=== PATIENT | female | born 1980 | race Caucasian/White ===

== ENCOUNTER → 2018-03-10 | Outpatient (CLI) | payer BC ==
[~2018-03-10] MED LIST: ACYC200C PO; ALPR-557 PO; SERT50TA9 PO
--- NOTE | 2018-03-10 13:14 | Diagnostic Imaging Report ---
INDICATION: anatomy survey. TECHNIQUE: Multiple real-time grayscale images were obtained over the gravid uterus. COMPARISON: None FINDINGS: There is a single live intrauterine in cephalic presentation. The placenta is posterior and fundal in location and is without previa. The amniotic fluid appears visually appropriate. Due to advanced gestational age, maternal adnexa are not well seen. survey was performed and the following structures are visualized and normal: Cerebral ventricles, cerebellum, cisterna magna, four-chamber heart, stomach, kidneys, umbilical cord insertion, three-vessel cord, spine and all four extremities. Biometrical measurements are as follows: Biparietal 4.8 cm, age 20 weeks 4 days. Head circumference 17.7 cm, age 20 weeks 2 days. Abdominal circumference 14.9 cm, age 20 weeks 2 days. Femur length 3.4 cm, age 20 weeks 4 days. Sonographic estimate age: 20 weeks 3 days. Sonographic estimated date of delivery: 07/25/18. Estimated Weight: 346 gm (+/- 51 gm). LMP percentile: 64%. heart rate: 150 beats per minute. number: 1 of 1. IMPRESSION: 1. Single live intrauterine with normal anatomy survey. Dictated by: Dictated on workstation # [id number]
== END ==
LOC: RAD 10:04
PROVIDERS: ATTEND Obstetrics & Gynecology
DX: Z36.89 Encounter for other specified antenatal screening (principal); Z3A.20 20 weeks gestation of pregnancy
CPT/HCPCS: 76805

== ENCOUNTER 2018-04-03 11:05 | Outpatient (CLI) | payer BC ==
[2018-04-03 11:55] VITALS: BP 122/76
--- NOTE | 2018-04-03 12:08 | Physician Query-Final Dx ---
Clinic Account Progress/Dx Physician Query: Date of Service Apr 03, 2018 at 11:05 DIAGNOSIS: Diagnosis decreased movement 24 weeks SANJUANA THOMAS DO Apr 03, 2018 12:08
== END 2018-04-03 12:00 | disposition home or self-care (01) ==
LOC: WSo 11:05 → LDRP 11:05 → WSo 12:00
PROVIDERS: ATTEND Obstetrics & Gynecology
DX: O36.8120 Decreased fetal movements, second trimester, not applicable or unspecified (principal); Z3A.24 24 weeks gestation of pregnancy
CPT/HCPCS: 99212

== ENCOUNTER 2018-07-09 13:45 | Inpatient (IN) | payer BC ==
[~2018-07-09] VITALS: Ht 147.3 cm; Wt 67.1 kg
[2018-07-09] VITALS (21 sets, daily range): BP systolic 135–191; BP diastolic 73–114
--- OUTSIDE RECORDS SUMMARY | 2018-07-09 14:13 | XMS REPORT ---
Author Author AMANDA BROWN Organization [facility] Address [address] [place] [address] Care Team Providers Care Freight Brakeman Name Role Phone AMANDA BROWN Unavailable PROBLEMS Unknown Problems ALLERGIES No Information ENCOUNTERS Encounter Location Date Diagnosis [facility] [address] [address] 15 Mar, 2018 Dental examination Z01.20 [facility] [address] [address] 14 Mar, 2018 Pain, dental K08.89 [facility] [address] [place], [place] [address] [address] Oct, Encounter for test, result unknown Z32.00 IMMUNIZATIONS No Known Immunizations SOCIAL HISTORY Never Assessed REASON FOR VISIT Lab (walk-in)- urine test PLAN OF CARE VITAL SIGNS MEDICATIONS No Known Medications RESULTS Name Result Date Reference Range TEST, URINE (IN HOUSE) 2017-11-25 RESULTS Positive Lot # [id number] Control + Exp date 02/2019 PROCEDURES Procedure Date Ordered Result Body Site URINE TEST Nov 25, 2017 INSTRUCTIONS MEDICATIONS ADMINISTERED No Known Medications MEDICAL (GENERAL) HISTORY Type Description Date Medical History Panic attacks Medical History - 2017 Surgical History steel rods and 10 fuzed vertebra
--- OUTSIDE RECORDS SUMMARY | 2018-07-09 14:13 | XMS REPORT | Continuity of Care Document ---
Author Author [facility] Organization [facility] Address Unknown Phone Unavailable Allergies Active Description Code Type Severity Reaction Onset Reported/Identified Relationship to Patient Clinical Status Yes NKANo Known Allergies NKA Miscellaneous Allergy Unknown N/A 04/02/2007 Medications There is no data. 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 07/20/2014 MARLA HAN APRN Ot 528.9 ORAL SOFT TISSUE DIS NEC 2018 OLGA BRAVO DO Ot 724.1 PAIN IN THORACIC SPINE 2018 OLGA BRAVO DO Ot 737.30 IDIOPATHIC SCOLIOSIS 03/07/2018 OLGA BRAVO DO Ot 724.1 PAIN IN THORACIC SPINE 03/07/2018 OLGA BRAVO DO Ot 737.30 IDIOPATHIC SCOLIOSIS 03/11/2018 REBECAECH DOTOMASZ S Ot Z36.89 ENCOUNTER FOR OTHER SPECIFIED 03/11/2018 REBECAECH DOTOMASZ S Ot Z3A.20 20 WEEKS GESTATION OF 03/26/2018 REBECAECH DOTOMASZ Ot Z36.89 ENCOUNTER FOR OTHER SPECIFIED 03/26/2018 FENECH DOTOMASZ Ot Z3A.20 20 WEEKS GESTATION OF 04/03/2018 SANJUANA THOMAS DO Ot O36.8120 DECREASED MOVEMENTS, SECOND TRIMES 04/03/2018 SANJUANA THOMAS DO Ot Z3A.24 24 WEEKS GESTATION OF Procedures There is no data. Results There is no data. Encounters ACCT No. Visit Date/Time Discharge Status Pt. Type Provider Facility Loc./Unit Complaint [id number] 04/03/2018 11:05:00 04/03/2018 12:00:00 DIS Outpatient SANJUANA THOMAS DO [facility] [id number] 03/10/2018 10:04:00 03/10/2018 23:59:59 CLS Outpatient TOMASZ BOYLE DO [facility] RAD [id number] 07/20/2014 19:01:00 07/20/2014 20:38:00 DIS Emergency MARLA HAN APRN [facility] ER DENTAL PAIN [id number] 02/01/2014 11:27:00 02/01/2014 23:59:59 CLS Outpatient OLGA BRAVO DO [facility] RAD PAIN IN BACK L THORACIC REG [id number] 07/09/2018 13:45:00 ACT Inpatient TOMASZ BOYLE DO [facility] LDRP PRECLAMPSIA [id number] 04/11/2018 08:30:00 04/11/2018 23:59:59 CLS Outpatient JOSEPH QUARLES L[facility]
--- OUTSIDE RECORDS SUMMARY | 2018-07-09 14:13 | XMS REPORT ---
Author Author MARY MATHEWS Organization [facility] Address [address] [place] [address] Care Team Providers Care Loin Puller Name Role Phone MARY MATHEWS Unavailable PROBLEMS Unknown Problems ALLERGIES No Known Allergies ENCOUNTERS Encounter Location Date Diagnosis [facility] [address] [address] 15 Mar, 2018 Dental examination Z01.[address] [facility] [address] [address] 14 Mar, 2018 Pain, dental K08.89 [facility] [address] [address] Oct, Encounter for test, result unknown Z32.00 IMMUNIZATIONS No Known Immunizations SOCIAL HISTORY Never Assessed REASON FOR VISIT tooth pain PLAN OF CARE VITAL SIGNS Blood pressure systolic 140 mmHg 2018-04-11 Blood pressure diastolic 90 mmHg 2018-04-11 MEDICATIONS Medication Instructions Dosage Frequency Start Date End Date Duration Status Alprazolam 0.5 MG Orally Twice a day 1 tablet 12h Active Zoloft 100 MG Orally Once a day 1 tablet 24h Active Amoxicillin 500 MG Orally every 8 hrs 1 capsule 8h Active RESULTS No Results PROCEDURES Procedure Date Ordered Result Body Site INTRAORL-PERIAPICAL 1 FILM [id number] April 11, 2018 BITEWING - SINGLE FILM April 11, 2018 INSTRUCTIONS MEDICATIONS ADMINISTERED No Known Medications MEDICAL (GENERAL) HISTORY Type Description Date Medical History Panic attacks Medical History - 2017 Surgical History steel rods and 10 fuzed vertebra
--- OUTSIDE RECORDS SUMMARY | 2018-07-09 14:13 | XMS REPORT ---
Author Author TEHRESA MARQUES Organization [facility] Address [address] [place] [address] Care Team Providers Care Window Draper Name Role Phone THERESA MARQUES Unavailable PROBLEMS Unknown Problems ALLERGIES No Known Allergies ENCOUNTERS Encounter Location Date Diagnosis [facility] [address], [place] [address] 15 Mar, 2018 Dental examination Z01.20 [facility] [address], [place] [address] 14 Mar, 2018 Pain, dental K08.89 [facility] [address], [place] [address] Oct, Encounter for test, result unknown Z32.00 IMMUNIZATIONS No Known Immunizations SOCIAL HISTORY Never Assessed REASON FOR VISIT Abscess tooth Pt has an abscess tooth and can't eat or sleep, she is 6 months , is currently on antibitiotics since Saturday which have not helped the swelling OZZIE Cabrera PLAN OF CARE Activity Details Follow Up tomorrow, April 11 Reason:dental pain VITAL SIGNS Weight 141.6 lbs 2018-04-10 Temperature 97.5 degrees Fahrenheit 2018-04-10 Heart Rate 88 bpm 2018-04-10 Respiratory Rate 20 2018-04-10 Blood pressure systolic 146 mmHg 2018-04-10 Blood pressure diastolic 88 mmHg 2018-04-10 MEDICATIONS Medication Instructions Dosage Frequency Start Date End Date Duration Status Amoxicillin 500 MG Orally every 8 hrs 1 capsule 8h Active Alprazolam 0.5 MG Orally Twice a day 1 tablet 12h Active Zoloft 100 MG Orally Once a day 1 tablet 24h Active RESULTS No Results PROCEDURES No Known procedures INSTRUCTIONS MEDICATIONS ADMINISTERED No Known Medications MEDICAL (GENERAL) HISTORY Type Description Date Medical History Panic attacks Medical History - 2017 Surgical History steel rods and 10 fuzed vertebra
[2018-07-09] MEDS ORDERED: D5 LR IV SOLUTION 1,000 ML IV ONE ×2 (15:00→23:30)
[2018-07-09] MEDS ORDERED: MISOPROSTOL 100 MCG (CYTOTEC) TAB PO NR (15:00)
[2018-07-09 15:46] LABS: BASOPHILS % (AUTO) 0 % (0-10); EOSINOPHILS # (AUTO) 0.1 10^3/uL (0.0-0.3); EOSINOPHILS % (AUTO) 1 % (0-10); HEMATOCRIT 32 % (35-52); HEMOGLOBIN 10.6 G/DL (11.5-16.0); LYMPHOCYTES # (AUTO) 2.1 X 10^3 (1.0-4.0); LYMPHOCYTES % (AUTO) 19 % (12-44); MEAN CORPUSCULAR HEMOGLOBIN 31 PG (25-34); MEAN CORPUSCULAR HGB CONC 33 G/DL (32-36); MEAN CORPUSCULAR VOLUME 92 FL (80-99); MEAN PLATELET VOLUME 10.9 FL (7.4-10.4); MONOCYTES # (AUTO) 0.7 X 10^3 (0.0-1.0); MONOCYTES % (AUTO) 6 % (0-12); NEUTROPHILS # (AUTO) 8.4 X 10^3 (1.8-7.8); NEUTROPHILS % (AUTO) 75 % (42-75); PLATELET COUNT 293 10^3/uL (130-400); RED BLOOD COUNT 3.47 10^6/uL (4.35-5.85); RED CELL DISTRIBUTION WIDTH 12.9 % (10.0-14.5); WHITE BLOOD COUNT 11.3 10^3/uL (4.3-11.0)
[2018-07-09 16:03] LABS: ALANINE AMINOTRANSFERASE 11 U/L (0-55); ALBUMIN 3.3 GM/DL (3.2-4.5); ALKALINE PHOSPHATASE 243 U/L (40-136); BILIRUBIN,TOTAL 0.4 MG/DL (0.1-1.0); BUN/CREATININE RATIO 13; CARBON DIOXIDE 19 MMOL/L (21-32); CHLORIDE 105 MMOL/L (98-107); GFR ESTIMATED > 60; GLUCOSE 77 MG/DL (70-105); POTASSIUM 3.9 MMOL/L (3.6-5.0); SODIUM 133 MMOL/L (135-145); TOTAL PROTEIN 6.8 GM/DL (6.4-8.2)
--- NOTE | 2018-07-09 16:48 | History & Physical-OB ---
OB - Chief Complaint & HPI Date/Time Date of Admission: Date of Admission: Jul 09, 2018 at 1:45 pm Time Seen by Provider: 14:00 Chief Complaint/History OB-Reason for Admission/Chief: Obstetrical Complication (Preeclampsia) Hx : 1 Hx Para: 0 Expected Date of Delivery: Jul 22, 2018 Gestational Age in Weeks: 38 Gestational Age in Days: 1 Indication for induction: other (PreE) Other reason for admission: Patient sent up from office with BP of 140s /100s with +3 proteinuria and 0.4 protien/creatine ratio. Admission Nurse Assessment Rev: Yes History of Labs A pos Antibody neg RI RPR NR HBsAg NR HIV NR GC neg GBS neg Laboratory Tests Test 07/09/18 15:30 Range/Units White Blood Count 11.3 H 4.3-11.0 10^3/uL Red Blood Count 3.47 L 4.35-5.85 10^6/uL Hemoglobin 10.6 L 11.5-16.0 G/DL Hematocrit 32 L 35-52 % Mean Corpuscular Volume 92 80-99 FL Mean Corpuscular Hemoglobin 31 25-34 PG Mean Corpuscular Hemoglobin Concent 33 32-36 G/DL Red Cell Distribution Width 12.9 10.0-14.5 % Platelet Count 293 130-400 10^3/uL Mean Platelet Volume 10.9 H 7.4-10.4 FL Neutrophils (%) (Auto) 75 42-75 % Lymphocytes (%) (Auto) 19 12-44 % Monocytes (%) (Auto) 6 0-12 % Eosinophils (%) (Auto) 1 0-10 % Basophils (%) (Auto) 0 0-10 % Neutrophils # (Auto) 8.4 H 1.8-7.8 X 10^3 Lymphocytes # (Auto) 2.1 1.0-4.0 X 10^3 Monocytes # (Auto) 0.7 0.0-1.0 X 10^3 Eosinophils # (Auto) 0.1 0.0-0.3 10^3/uL Basophils # (Auto) 0.0 0.0-0.1 10^3/uL Sodium Level 133 L 135-145 MMOL/L Potassium Level 3.9 3.6-5.0 MMOL/L Chloride Level 105 98-107 MMOL/L Carbon Dioxide Level 19 L 21-32 MMOL/L Anion Gap 9 5-14 MMOL/L Blood Urea Nitrogen 9 7-18 MG/DL Creatinine 0.70 0.60-1.30 MG/DL Estimat Glomerular Filtration Rate > 60 BUN/Creatinine Ratio 13 Glucose Level 77 70-105 MG/DL Uric Acid 7.0 2.6-7.2 MG/DL Calcium Level 9.0 8.5-10.1 MG/DL Corrected Calcium 9.6 8.5-10.1 MG/DL Total Bilirubin 0.4 0.1-1.0 MG/DL Aspartate Amino Transf (AST/SGOT) 21 5-34 U/L Alanine Aminotransferase (ALT/SGPT) 11 0-55 U/L Alkaline Phosphatase 243 H 40-136 U/L Total Protein 6.8 6.4-8.2 GM/DL Albumin 3.3 3.2-4.5 GM/DL Allergies and Home Medications Allergies Coded Allergies: NKANo Known Allergies (Verified Allergy, Unknown, 04/02/07) Home Medications Acyclovir 200 Mg Capsule, 400 MG PO UD 5 times daily Prescribed by: MARLA HAN on 07/20/141954 Alprazolam 0.5 Mg Tab, 0.5 MG PO DAILY, (Reported) 1 TABLET IN THE MORNING AND ONE HALF TABLET IN THE EVENING. Sertraline Hcl 50 Mg Tablet, 50 MG PO DAILY, (Reported) Patient Home Medication List Home Medication List Reviewed: Yes OB - History Hx of Present Care: Yes Ultrasounds: Normal mid trimester US Obstetrical Complications: Pre-eclampsia Medical Complications: Other (Severe anxiety on Xanax) Delivery History Hx Blood Disorders: No Adverse Rxn to Tranfusion: No Patient Past Medical History severe anxiety, and hx of severe scoliosis requiring surgery OB - Admission Exam Physical Exam HEENT: NCAT Heart: Rhythm Normal Lungs: Clear Abdomen: Gravid Extremities: Normal Reflexes: Normal Cervical Dilatation: None Effacement: 50% Station: -2 Membranes: Intact Heart Rate: 130's Accelerations: Accelerations Present Decelerations: No Decelerations Short Term Variability: Present Data Collector Variability: Average (6-25) Contractions on Admission: >10 Minutes Apart Labs Laboratory Tests Test 07/09/18 15:30 Range/Units White Blood Count 11.3 H 4.3-11.0 10^3/uL Red Blood Count 3.47 L 4.35-5.85 10^6/uL Hemoglobin 10.6 L 11.5-16.0 G/DL Hematocrit 32 L 35-52 % Mean Corpuscular Volume 92 80-99 FL Mean Corpuscular Hemoglobin 31 25-34 PG Mean Corpuscular Hemoglobin Concent 33 32-36 G/DL Red Cell Distribution Width 12.9 10.0-14.5 % Platelet Count 293 130-400 10^3/uL Mean Platelet Volume 10.9 H 7.4-10.4 FL Neutrophils (%) (Auto) 75 42-75 % Lymphocytes (%) (Auto) 19 12-44 % Monocytes (%) (Auto) 6 0-12 % Eosinophils (%) (Auto) 1 0-10 % Basophils (%) (Auto) 0 0-10 % Neutrophils # (Auto) 8.4 H 1.8-7.8 X 10^3 Lymphocytes # (Auto) 2.1 1.0-4.0 X 10^3 Monocytes # (Auto) 0.7 0.0-1.0 X 10^3 Eosinophils # (Auto) 0.1 0.0-0.3 10^3/uL Basophils # (Auto) 0.0 0.0-0.1 10^3/uL Sodium Level 133 L 135-145 MMOL/L Potassium Level 3.9 3.6-5.0 MMOL/L Chloride Level 105 98-107 MMOL/L Carbon Dioxide Level 19 L 21-32 MMOL/L Anion Gap 9 5-14 MMOL/L Blood Urea Nitrogen 9 7-18 MG/DL Creatinine 0.70 0.60-1.30 MG/DL Estimat Glomerular Filtration Rate > 60 BUN/Creatinine Ratio 13 Glucose Level 77 70-105 MG/DL Uric Acid 7.0 2.6-7.2 MG/DL Calcium Level 9.0 8.5-10.1 MG/DL Corrected Calcium 9.6 8.5-10.1 MG/DL Total Bilirubin 0.4 0.1-1.0 MG/DL Aspartate Amino Transf (AST/SGOT) 21 5-34 U/L Alanine Aminotransferase (ALT/SGPT) 11 0-55 U/L Alkaline Phosphatase 243 H 40-136 U/L Total Protein 6.8 6.4-8.2 GM/DL Albumin 3.3 3.2-4.5 GM/DL OB - Assessment/Plan/Diagnosis Assessment Assessment: induction of labor Admission Dx 38 yo @ 38.1 weeks Preeclampsia GBS neg Hx of anxiety on xanax Hx of back surgeries for scoliosis Admission Status: Inpatient Order (span 2 midnights) Reason for Inpatient Admission: 38 yo @ 38.1 weeks Preeclampsia GBS neg Hx of anxiety on xanax Hx of back surgeries for scoliosis Plan Plan: Induction Induction Method: per Misoprostol Protocol TOMASZ BOYLE DO Jul 09, 2018 4:48 pm
[2018-07-09 16:57] LABS: BILIRUBIN,URINE NEGATIVE (NEGATIVE); CLARITY,URINE CLEAR; COLOR,URINE YELLOW; GLUCOSE, URINE (UA) NEGATIVE (NEGATIVE); KETONES,URINE NEGATIVE (NEGATIVE); LEUKOCYTE ESTERASE ,URINE 1+ (NEGATIVE); NITRITE,URINE NEGATIVE (NEGATIVE); PH,URINE 6 (5-9); PROTEIN,URINE 2+ (NEGATIVE); UROBILINOGEN,URINE NORMAL (NORMAL)
[2018-07-09 17:09] LABS: BACTERIA,URINE FEW /HPF
[2018-07-09] MEDS ORDERED: ACETAMINOPHEN 500 MG TAB (TYLENOL) ONE (19:18)
[2018-07-09] MEDS: MISOPROSTOL 100 MCG (CYTOTEC) TAB PO SCH ×2 (19:22→23:34)
[2018-07-09] MEDS ORDERED: ACETAMINOPHEN 500 MG TAB (TYLENOL) PO PRN (19:30)
[2018-07-09] MEDS ORDERED: D5 LR IV SOLUTION 1,000 ML IV SCH (23:46)
[2018-07-10] VITALS (19 sets, daily range): BP systolic 121–185; BP diastolic 69–108
[2018-07-10] MEDS ORDERED: METOCLOPRAMIDE INJ 10 MG/2 ML (REGLAN) ONE (02:22)
[2018-07-10] MEDS ORDERED: raNItidine 50 MG/2 ML INJ (ZANTAC) ONE (02:22)
[2018-07-10] MEDS ORDERED: CITRIC ACID/SOB CIT (BICITRA) 30 ML UDC ONE (02:23)
[2018-07-10] MEDS ORDERED: NS (IVPB) 50 ML ONE ×2 (02:23→06:02)
[2018-07-10] MEDS ORDERED: ceFAZolin 1,000 MG/10 ML (ANCEF) VIAL ONE (02:23)
[2018-07-10] MEDS ORDERED: METOCLOPRAMIDE INJ 10 MG/2 ML (REGLAN) IV ONE ×2 (02:30→03:00)
[2018-07-10] MEDS ORDERED: LACTATED RINGERS 1,000 ML IV PRN (02:30)
[2018-07-10] MEDS ORDERED: raNItidine INJECTION 50 MG in NS (IVPB) 50 ML IV ONE (02:30)
[2018-07-10] MEDS ORDERED: CITRIC ACID/SOB CIT (BICITRA) 30 ML UDC PO ONE ×2 (02:30→03:00)
--- NOTE | 2018-07-10 02:32 | Progress Note-Standard ---
Standard Progress Note Progress Notes/Assess & Plan Date Seen by Provider: Jul 10, 2018 Time Seen by Provider: 02:00 Progress/Assessment & Plan I presented to the hospital this morning during the patient's cervical ripening using Cytotec due to being contacted by the nurse with blood pressures of 180s over 110s, as well as a continuing severe headache. Upon presenting to the labor unit the patient reports having some vision changes I discussed with her starting magnesium sulfate and proceeding with delivery however due to the length of delivery the patient being remote from delivery, as well as recent spontaneous rupture membranes I discussed the patient proceed with . The indication for this would be worsening severe preeclampsia, with remoteness from delivery. Risk of the procedure was discussed with the patient in detail including risk of bleeding, infection, damaging surrounding structures including but not limited to bowel, bladder, kidneys. We discussed postoperative expectations recovery timeframe, she understands this is not ideal but more for her safety as well as well-being with the risk of prolonged rupture membranes and an extended labor course with elevated blood pressures. We will proceed with primary section soon as or staff is available, if no improvement we'll blood pressure after neural-axial analgesia, will consider magnesium sulfate infusion. TOMASZ BOYLE DO Jul 10, 2018 2:32 am
[2018-07-10] MEDS ORDERED: OXYTOCIN/NORMAL SALINE 500 ML IV SCH (02:33)
[2018-07-10] MEDS ORDERED: D5 LR IV SOLUTION 1,000 ML IV SCH (02:35)
[2018-07-10] MEDS ORDERED: CALCIUM GLUC. 10% 4.65 MEQ/10 ML VIAL IV PRN (02:45)
[2018-07-10] MEDS ORDERED: HYDROmorphone 2 MG/ML VIAL (DILAUDID) IV PRN (02:45)
[2018-07-10] MEDS ORDERED: ONDANSETRON 4 MG/2 ML (SDV) Z0FRAN IVP PRN (02:45)
[2018-07-10] MEDS ORDERED: TETANUS,DIPTH,PERTUSS P/F (BOOSTRIX) 0.5 ML VIAL IM SCH (02:45)
[2018-07-10] MEDS ORDERED: MEASLES,MUMPS,RUBELLA 1 EA INJ SC SCH (02:45)
[2018-07-10] MEDS ORDERED: ceFAZolin INJECTION 1,000 MG in NS (IVPB) 50 ML IV ONE (02:45)
[2018-07-10] MEDS ORDERED: LACTATED RINGERS 1,000 ML IV SCH ×2 (02:51)
[2018-07-10] MEDS ORDERED: ONDANSETRON 4 MG/2 ML (SDV) Z0FRAN ONE (02:57)
[2018-07-10] MEDS ORDERED: fentaNYL INJECTION 100 MCG/2 ML AMP ONE (02:57)
[2018-07-10] MEDS ORDERED: OXYTOCIN/NORMAL SALINE 1,000 ML IV ONE (02:57)
[2018-07-10] MEDS ORDERED: DEXAMETHASONE 10 MG/ML (DECADRON) 1 ML VIAL ONE (02:57)
[2018-07-10] MEDS ORDERED: NALOXONE 0.4 MG/ML 1 ML (NARCAN) VIAL IV PRN ×2 (03:00)
[2018-07-10] MEDS ORDERED: FAMOTIDINE 20MG/2ML IV (PEPCID) IV ONE (03:00)
[2018-07-10] MEDS ORDERED: METOCLOPRAMIDE INJ 10 MG/2 ML (REGLAN) IV PRN (03:00)
[2018-07-10] MEDS ORDERED: diphenhydrAMINE 50 MG/ML INJ (BENADRYL) IV PRN (03:00)
[2018-07-10] MEDS ORDERED: ONDANSETRON 4 MG/2 ML (SDV) Z0FRAN IV PRN (03:00)
[2018-07-10] MEDS ORDERED: BUPIVACAINE SPINAL 0.75% (SENSORCAINE) 2 ML AMP ONE (03:02)
[2018-07-10] MEDS ORDERED: MAGNESIUM SULFATE DRIP 500 ML IV SCH (03:05)
[2018-07-10] MEDS ORDERED: KETAMINE HCL 100 MG/ML 5 ML VIAL ONE (03:26)
[2018-07-10] MEDS ORDERED: KETOROLAC 30 MG/ML VIAL ONE (03:49)
[2018-07-10] MEDS: KETOROLAC 30 MG/ML VIAL IVP SCH ×4 (04:00→22:39)
[2018-07-10] MEDS: MAGNESIUM 4 GM/100 ML IVPB 100 ML IV SCH ×2 (04:38→04:54)
--- NOTE | 2018-07-10 05:06 | OPERATIVE REPORT ---
DATE OF SERVICE: PREOPERATIVE DIAGNOSES: 1. A 38-year-old G1, P0 at 38 weeks and 2 days gestation. 2. Severe worsening preeclampsia. 3. Remote from delivery. 4. Advanced maternal age. 5. Severe anxiety with Xanax used during . POSTOPERATIVE DIAGNOSES: 1. A 38-year-old G1, P0 at 38 weeks and 2 days gestation. 2. Severe worsening preeclampsia. 3. Remote from delivery. 4. Advanced maternal age. 5. Severe anxiety with Xanax used during . PROCEDURE: Primary low transverse section. SURGEON: Cj Morgan DO ANESTHESIA: Spinal. ESTIMATED BLOOD LOSS: 300 mL. URINE OUTPUT: 35 mL clear at the end of the procedure. FLUIDS: 300 mL of lactated Ringer's solution. FINDINGS: A live female infant with weight and Apgars that are pending as well as respiratory depression according to synthetic gem press operator available. Grossly normal appearing uterus, bilateral fallopian tubes and ovaries. SPECIMEN SENT: Placenta. INDICATIONS FOR PROCEDURE: This 38-year-old female who was a patient seen in my office with a diagnosis of preeclampsia. Initially started with cervical ripening agents in order to start out for induction; however, her blood pressures began to shoot up higher, 180s over 110s. This may be slightly anxiety induced and pain induced but she was also reporting a severe significant headache that was new onset since the start of the induction. Due to this severe preeclampsia as well as the patient being remote from delivery and spontaneous rupture of membranes which had occurred, I discussed with the patient proceeding with for delivery and treatment of her hypertension. Risks of the procedure were discussed with the patient in detail including risk of bleeding, infection, damage to surrounding structures including but not limited to bowel, bladder, ureter, kidneys, preoperative expectations as well as postoperative recovery time period, hospital admission and expectations as well. After all the patient's questions were answered, consent was obtained in the preoperative area. The patient was taken to the operating room. OPERATIVE REPORT IN DETAIL: Once in the operating room, spinal analgesia was found to be adequate, she was placed in supine position with a leftward tilt, prepped and draped in normal sterile fashion. A timeout was performed. Anesthesia was tested. A Pfannenstiel skin incision was then made with a knife and carried down to the underlying fascia using Bovie cautery. Superior aspect of fascial incision was then grasped with Germain clamps, tented up and dissected off the underlying rectus muscles. The inferior aspect of the fascial incision was then grasped with Germain clamps, tented up and dissected off the underlying rectus muscles. The rectus muscle was then dissected down the midline using Metzenbaum scissors, which exposed the peritoneum, which was entered bluntly and extended using blunt traction. I then placed an Homar ring retractor in to the peritoneal incision, which offered excellent lateral sidewall retraction. I then identified the lower uterine segment, which was found to be thinned out. I made an incision through the vesicouterine peritoneum and bluntly dissected this off of the lower uterine segment, creating a bladder flap. I then proceeded with my myotomy until membranes were visualized, at which point I extended the uterine incision laterally and superiorly using bandage scissors, which also ruptures the membranes through my incision on the myotomy. The was found in the vertex presentation, occiput posterior. I elevated the 's head out of incision with gentle fundal pressure, the 's head was delivered through the incision. The nares and oropharynx were both bulb suctioned. Anterior and posterior shoulders were delivered. Infant was then brought to the operative field. The cord was doubly clamped and cut. The infant was handed off to Dr. Sanchez attending to delivery. Cord blood was collected. Three-vessel cord with intact placenta delivered spontaneously thereafter. IV Pitocin was initiated to facilitate uterine contraction. The fundus was controlled by manual massage. The uterus was then exteriorized and cleared of all endometrial clots and debris. I then proceeded with closing the uterine incision using 0 Vicryl suture in a running locked fashion. Second layer imbricating 0 Monocryl was placed. Excellent hemostasis was noted after doing so. I then placed the uterus back in the pelvis, copiously irrigating the pelvis using normal saline. Once again, there was no active bleeding noted from any of my dissection plane. I then placed Interceed antiadhesive over my low transverse incision. I proceed closing the peritoneum using 3-0 Vicryl suture in running fashion. The rectus muscle reapproximated using 3-0 Vicryl suture in interrupted fashion. The fascia was reapproximated using 0 Vicryl suture in running fashion. The subcutaneous tissue was reapproximated using 3-0 plain interrupted subcutaneous stitch and skin reapproximated using 4-0 Monocryl in running subcuticular. Dermabond was applied to the incision and sterile dressing with adhesive white tape. One gram of Ancef given preoperatively for infection prophylaxis. Magnesium sulfate infusion was started after delivery of the infant with a bolus of 4 grams. The patient was then taken to the recovery area in stable condition. Job ID: [id number] DocumentID: [id number] Dictated Date: 07/10/2018 04:14:15 Motor Patrol Operator Date: 07/10/2018 05:05:34 Dictated By: DO AMANDEEP MASON
[2018-07-10] MEDS: IBUPROFEN 600 MG (MOTRIN) TAB PO SCH (05:48)
[2018-07-10] MEDS ORDERED: CATHETER FLUSH 10 ML SYR IV SCH ×2 (06:00)
[2018-07-10] MEDS: HYDROcodone/APAP 5 MG/325 MG (LORTAB) TAB PO PRN ×4 (07:10→21:04)
[2018-07-10] MEDS ORDERED: raNItidine 50 MG/NS 50 ML IVPB IV NR ×2 (07:37)
[2018-07-10] MEDS ORDERED: LABETALOL 200 MG (NORMODYNE) TAB PO NR (10:15)
[2018-07-10] MEDS: DOCUSATE SODIUM 100 MG (COLACE) CAP PO SCH ×2 (10:36→20:33)
[2018-07-10] MEDS: LABETALOL 200 MG (NORMODYNE) TAB PO SCH (20:33)
[2018-07-10] MEDS ORDERED: LABETALOL 200 MG (NORMODYNE) TAB PO SCH (21:00)
[2018-07-11] VITALS: BP 132/86
[2018-07-11] MEDS: HYDROcodone/APAP 5 MG/325 MG (LORTAB) TAB PO PRN ×4 (00:59→13:45)
[2018-07-11 04:03] VITALS: BP 107/70
[2018-07-11] MEDS: IBUPROFEN 600 MG (MOTRIN) TAB PO SCH ×2 (05:38→11:25)
[2018-07-11 06:00] LABS: BASOPHILS % (AUTO) 0 % (0-10); EOSINOPHILS # (AUTO) 0.1 10^3/uL (0.0-0.3); EOSINOPHILS % (AUTO) 1 % (0-10); HEMATOCRIT 26 % (35-52); HEMOGLOBIN 8.6 G/DL (11.5-16.0); LYMPHOCYTES # (AUTO) 2.4 X 10^3 (1.0-4.0); LYMPHOCYTES % (AUTO) 19 % (12-44); MEAN CORPUSCULAR HEMOGLOBIN 31 PG (25-34); MEAN CORPUSCULAR HGB CONC 33 G/DL (32-36); MEAN CORPUSCULAR VOLUME 94 FL (80-99); MEAN PLATELET VOLUME 10.6 FL (7.4-10.4); MONOCYTES % (AUTO) 7 % (0-12); NEUTROPHILS # (AUTO) 9.3 X 10^3 (1.8-7.8); NEUTROPHILS % (AUTO) 73 % (42-75); PLATELET COUNT 169 10^3/uL (130-400); RED BLOOD COUNT 2.81 10^6/uL (4.35-5.85); RED CELL DISTRIBUTION WIDTH 13.1 % (10.0-14.5); WHITE BLOOD COUNT 12.8 10^3/uL (4.3-11.0)
--- NOTE | 2018-07-11 06:52 | Anesthesia-Regional Post-Op ---
Regional Patient Condition Mental Status: Alert, Oriented x3 Circulation: Same as Pre-Op Headache: Absent Sensation: Full Recovery Motor Block: Absent Post Op Complications Complications None Follow Up Care/Instructions Patient Instructions None needed. Anesthesia/Patient Condition Patient is doing well, no complaints, stable vital signs, no apparent adverse anesthesia problems. No complications reported per nursing. PRIYA LEMA CRNA Jul 11, 2018 06:52
[2018-07-11 08:00] VITALS: BP 143/92
[2018-07-11 12:42] LABS: BASOPHILS % (AUTO) 0 % (0-10); EOSINOPHILS # (AUTO) 0.1 10^3/uL (0.0-0.3); EOSINOPHILS % (AUTO) 1 % (0-10); HEMATOCRIT 26 % (35-52); HEMOGLOBIN 8.5 G/DL (11.5-16.0); LYMPHOCYTES # (AUTO) 2.2 X 10^3 (1.0-4.0); LYMPHOCYTES % (AUTO) 19 % (12-44); MEAN CORPUSCULAR HEMOGLOBIN 31 PG (25-34); MEAN CORPUSCULAR HGB CONC 33 G/DL (32-36); MEAN CORPUSCULAR VOLUME 94 FL (80-99); MEAN PLATELET VOLUME 10.3 FL (7.4-10.4); MONOCYTES # (AUTO) 0.7 X 10^3 (0.0-1.0); MONOCYTES % (AUTO) 7 % (0-12); NEUTROPHILS # (AUTO) 8.4 X 10^3 (1.8-7.8); NEUTROPHILS % (AUTO) 73 % (42-75); PLATELET COUNT 178 10^3/uL (130-400); RED BLOOD COUNT 2.75 10^6/uL (4.35-5.85); RED CELL DISTRIBUTION WIDTH 13.2 % (10.0-14.5); WHITE BLOOD COUNT 11.5 10^3/uL (4.3-11.0)
--- NOTE | 2018-07-11 13:01 | Physician Progress Note ---
Progress Note Assessment/Plan Date Seen by Provider: Jul 11, 2018 Time Seen by Provider: 11:15 Events since last exam Asked to see patient by Dr. Morgan who is temporarily unavailable. Had cs yesterday at 0330. Bandage was removed at 0600. RN noted blood "running down" onto floor but initially unsure if this was vaginal vs incision. However, since that time, RN has placed pad and now pressure dressing. Initial pad was immediately soaked with standing. Current dressing appears dry. However, Hgb had dropped from 10.6-8.6. she states that she has had some burning pain in the right lower quadrant near the incision. She states, however, that this has improved but is still present. On exam the incision is intact but there is some drainage from the center of the incision with palpation. however, this is minimal. It is suggestive of an incisional seroma, but there is no ecchymosis or bruising. RN states that the area above the center portion of the incision was firm but is now softer. In addition, the abdomen is soft and minimally tender. I suspect that she has had a seroma. However, I cannot assess acute bleeding. Vitals are stable. There is nothing to suggest a rectus hematoma or intraabdominal bleeding. Will continue pressure dressing and recheck hemoglobin. Not necessary to return to surgery at this time but will reevaluate at a later time. discussed via phone with Dr. Morgan. RN present for exam and discussion. Addendum 12:30 Hgb is 8.5 which is stable Assessment/Plan Incisional seroma Vitals Last set of Vitals Signs Vital Signs Date Time Temp Pulse Resp B/P (MAP) Pulse Ox O2 Delivery O2 Flow Rate FiO2 07/11/18 04:03 97.7 71 16 107/70 (82) 95 07/10/18 15:15 Room Air I&O I&O Intake and Output 07/11/18 00:00 Intake Total 550 ml Output Total 685 ml Balance -135 ml Intake Oral 500 ml IV Total 50 ml Output Urine Total 385 ml Estimated Blood Loss 300 ml Labs Laboratory Tests 07/11/18 05:35: White Blood Count 12.8H, Red Blood Count 2.81L, Hemoglobin 8.6L, Hematocrit 26L , Mean Corpuscular Volume 94, Mean Corpuscular Hemoglobin 31, Mean Corpuscular Hemoglobin Concent 33, Red Cell Distribution Width 13.1, Platelet Count 169, Mean Platelet Volume 10.6H, Neutrophils (%) (Auto) 73, Lymphocytes (%) (Auto) 19 , Monocytes (%) (Auto) 7, Eosinophils (%) (Auto) 1, Basophils (%) (Auto) 0, Neutrophils # (Auto) 9.3H, Lymphocytes # (Auto) 2.4, Monocytes # (Auto) 1.0, Eosinophils # (Auto) 0.1, Basophils # (Auto) 0.0 07/11/18 12:20: White Blood Count 11.5H, Red Blood Count 2.75L, Hemoglobin 8.5L, Hematocrit 26L , Mean Corpuscular Volume 94, Mean Corpuscular Hemoglobin 31, Mean Corpuscular Hemoglobin Concent 33, Red Cell Distribution Width 13.2, Platelet Count 178, Mean Platelet Volume 10.3, Neutrophils (%) (Auto) 73, Lymphocytes (%) (Auto) 19 , Monocytes (%) (Auto) 7, Eosinophils (%) (Auto) 1, Basophils (%) (Auto) 0, Neutrophils # (Auto) 8.4H, Lymphocytes # (Auto) 2.2, Monocytes # (Auto) 0.7, Eosinophils # (Auto) 0.1, Basophils # (Auto) 0.0 Clinical Quality Measures DVT/VTE Risk/Contraindication: Risk Factor Score Per Nursin RFS Level Per Nursing on Admit: 1=Low/No VTE PPX SANJUANA THOMAS DO Jul 11, 2018 13:01
--- NOTE | 2018-07-11 13:44 | Discharge Inst-Women's Service ---
Discharge Inst-Women's Serv Depart Medication/Instructions New, Converted or Re-Newed RX: RX on Chart Consults/Follow Up Additional Follow Up: Yes Orders/Referrals Dr. Morgan on Saturday for incision check and 6 weeks Activity Activity: Activity as Tolerated Driving Instructions: No Driving for 1 Week NO SMOKING: NO SMOKING Nothing Inside Vagina: No Douching, No [place], No Tampons Diet Discharge Diet: No Restrictions Symptoms to Report to : Swelling Increased, Bleeding Excessive, Eyesight Changes, Pain Increased, Fever Over 101 Degrees F, Pain/Pressure in Chest, Vaginal Bleeding Increase, Questions/Concerns, Dizziness/Fainting For Any Problems or Questions: Contact Your Physician Skin/Wound Care Infection Signs and Symptoms: Increased Redness, Foul Odor of Wound, Increased Drainage, Skin Itchy or Has a Rash, Increased Swelling, Temperature Above 101 F Operative Area Clean and Dry: Keep Incision Clean/Dry Stitches/Jonny/Dermabond: Dermabond, Care of Stitches Bathing Instructions: TOMASZ Duncan DO Jul 11, 2018 13:44
[2018-07-11] MEDS: LABETALOL 200 MG (NORMODYNE) TAB PO SCH (13:45)
[2018-07-11] MEDS: DOCUSATE SODIUM 100 MG (COLACE) CAP PO SCH (13:45)
[2018-07-11] MEDS ORDERED: LABE200T7 PO (13:46)
[2018-07-11] MEDS ORDERED: DOCU100C37 PO (13:46)
[2018-07-11] MEDS ORDERED: IBUP-844 PO (13:46)
[2018-07-11] MEDS ORDERED: ACHD5005 PO (13:46)
[2018-07-11 14:00] VITALS: BP 161/108
--- NOTE | 2018-07-11 14:57 | Postpartum Progress Note ---
Note Note Day # 1 Subjective: Patient is without complaints. Ambulating, voiding. Tolerating a regular diet without nausea or vomiting. Normal lochia. Pain is well controlled with oral pain medications. was transferred to [place] for respiratory distress but is doing well according to patient Objective: Vital Sign - Last 24 Hours 07/10/18 07/10/18 07/11/18 07/11/18 15:15 19:25 00:00 04:03 Temp 97.6 97.4 97.4 97.7 Pulse 88 91 93 71 Resp 18 18 18 16 B/P (MAP) 143/93 (110) 140/87 (104) 132/86 (101) 107/70 (82) Pulse Ox 98 97 97 95 O2 Delivery Room Air Intake and Output 07/10/18 07/10/18 07/11/18 15:00 23:00 07:00 Intake Total 500 ml 470 ml Output Total 100 ml 600 ml Balance -100 ml 500 ml -130 ml Physical Exam: General - Alert and oriented, no apparent distress Abdomen - Soft, appropriately tender to palpation, non-distended, fundus firm at umbilicus Extremities - no edema, negative Samantha's bilaterally Incision- c/d/i, had serous sanguenous drainage early, but with pressure and redressing that has stopped Assessment: POD 1 PLTCS PreE Incisional seroma Severe anxiety/anxiety disorder s/p MgSO4 x 12 hrs Plan: Routine care. Encourage breast feeding. Encourage ambulation. Ferrous sulfate supplementation. Continue labetalol 200 mg TID at home Plan for discharge today to be with at [place] Vitals - Labs Vital Signs - I&O Vital Signs Date Time Temp Pulse Resp B/P (MAP) Pulse Ox O2 Delivery O2 Flow Rate FiO2 07/11/18 04:03 97.7 71 16 107/70 (82) 95 07/11/18 00:00 97.4 93 18 132/86 (101) 97 07/10/18 19:25 97.4 91 18 140/87 (104) 97 07/10/18 15:15 97.6 88 18 143/93 (110) 98 Room Air I & O 07/11/18 07:00 Intake Total 970 ml Output Total 700 ml Balance 270 ml Labs Laboratory Tests 07/11/18 05:35: White Blood Count 12.8H, Red Blood Count 2.81L, Hemoglobin 8.6L, Hematocrit 26L , Mean Corpuscular Volume 94, Mean Corpuscular Hemoglobin 31, Mean Corpuscular Hemoglobin Concent 33, Red Cell Distribution Width 13.1, Platelet Count 169, Mean Platelet Volume 10.6H, Neutrophils (%) (Auto) 73, Lymphocytes (%) (Auto) 19 , Monocytes (%) (Auto) 7, Eosinophils (%) (Auto) 1, Basophils (%) (Auto) 0, Neutrophils # (Auto) 9.3H, Lymphocytes # (Auto) 2.4, Monocytes # (Auto) 1.0, Eosinophils # (Auto) 0.1, Basophils # (Auto) 0.0 07/11/18 12:20: White Blood Count 11.5H, Red Blood Count 2.75L, Hemoglobin 8.5L, Hematocrit 26L , Mean Corpuscular Volume 94, Mean Corpuscular Hemoglobin 31, Mean Corpuscular Hemoglobin Concent 33, Red Cell Distribution Width 13.2, Platelet Count 178, Mean Platelet Volume 10.3, Neutrophils (%) (Auto) 73, Lymphocytes (%) (Auto) 19 , Monocytes (%) (Auto) 7, Eosinophils (%) (Auto) 1, Basophils (%) (Auto) 0, Neutrophils # (Auto) 8.4H, Lymphocytes # (Auto) 2.2, Monocytes # (Auto) 0.7, Eosinophils # (Auto) 0.1, Basophils # (Auto) 0.0 TOMASZ BOYLE DO Jul 11, 2018 2:57 pm
--- OUTSIDE RECORDS SUMMARY | 2018-07-17 13:54 | XMS REPORT | Continuity of Care Document ---
Author Author [facility] Organization [facility] Address Unknown Phone Unavailable Allergies Active Description [...] Status Pt. Type Provider Facility Loc./Unit Complaint [id number] 07/09/2018 13:45:00 07/11/2018 15:37:00 DIS Inpatient TOMASZ BOYLE DO [facility] WS PRECLAMPSIA [id number] 04/03/2018 11:05:00 04/03/2018 12:00:00 DIS Outpatient SANJUANA THOMAS DO [facility] WSo DFM [id number] 03/10/2018 10:04:00 03/10/2018 23:59:59 CLS Outpatient TOMSAZ BOYLE DO [facility] RAD [id number] 07/20/2014 19:01:00 07/20/2014 20:38:00 DIS Emergency MARLA HAN APRN [facility] ER DENTAL PAIN [id number] 02/01/2014 11:27:00 02/01/2014 23:59:59 CLS Outpatient OLGA BRAVO DO [facility] RAD PAIN IN BACK L THORACIC REG [id number] 04/11/2018 08:30:00 04/11/2018 23:59:59 CLS Outpatient JOSEPH QU[facility]LES [facility]
--- NOTE | 2018-07-17 16:36 | Physician Query-Final Dx ---
BRONWYN ESCOBAR 07/17/18 1636: Final Diagnosis Give Final Diagnosis Please give Final Diagnosis TOMASZ BOYLE DO 07/17/18 1705: Final Diagnosis Give Final Diagnosis PLTCS, Mild preeclampsia BRONWYN ESCOBAR Jul 17, 2018 16:36 TOMASZ BOYLE DO Jul 17, 2018 17:05
== END 2018-07-11 15:37 | disposition home or self-care (01) | DRG 765 ==
LOC: UNDOADMIN 13:45 → LDRP 13:45 → WS 07-10 05:17 → LDRP 07-10 05:17 → UNDODISIN 07-11 15:37
PROVIDERS: ADMIT Obstetrics & Gynecology; ATTEND Obstetrics & Gynecology
PROC: 10D00Z1 Extraction of Products of Conception, Low, Open Approach (ICD-10-PCS; principal; 2018-07-10 03:06)
DX: O14.13 Severe pre-eclampsia, third trimester (principal); O99.73 Diseases of the skin and subcutaneous tissue complicating the puerperium; L76.34 Postprocedural seroma of skin and subcutaneous tissue following other procedure; O99.343 Other mental disorders complicating pregnancy, third trimester; F41.9 Anxiety disorder, unspecified; O99.613 Diseases of the digestive system complicating pregnancy, third trimester; K21.9 Gastro-esophageal reflux disease without esophagitis; Z98.1 Arthrodesis status; Z3A.38 38 weeks gestation of pregnancy; Z37.0 Single live birth
CPT/HCPCS: 36415; 80053; 81000; 84550; 85025; 88307

== ENCOUNTER 2018-07-16 20:00 | Emergency (ER) | payer BC ==
[~2018-07-16] VITALS: Ht 147.3 cm; Wt 62.6 kg
[~2018-07-16 20:00] MED LIST changes: +ACHD5005 PO; +DOCU100C37 PO; +IBUP-844 PO; +LABE200T7 PO
--- OUTSIDE RECORDS SUMMARY | 2018-07-16 20:45 | XMS REPORT | Continuity of Care Document ---
Author Author [facility] Organization [facility] Address Unknown Phone Unavailable Allergies Active Description [...] BRAVO DO Ot 737.30 IDIOPATHIC SCOLIOSIS 03/11/2018 TOMASZ BOYLE DO Ot Z36.89 ENCOUNTER FOR OTHER SPECIFIED 03/11/2018 REBECAECH TOMASZ LI Ot Z3A.20 20 WEEKS GESTATION OF 03/26/2018 REBECAECH TOMASZ LI Ot Z36.89 ENCOUNTER FOR OTHER SPECIFIED 03/26/2018 REBECAECH DOTOMASZ Ot Z3A.20 20 WEEKS GESTATION OF 04/03/2018 SANJUANA THOMAS DO Ot O36.8120 DECREASED MOVEMENTS, SECOND TRIMES 04/03/2018 SANJUANA THOMAS DO Ot Z3A.24 24 WEEKS GESTATION OF Procedures There is no data. Results Test Result Range Complete blood count (CBC) with automated white blood cell (WBC) differential - 07/09/18 15:30 Blood leukocytes automated count (number/volume) 11.3 10*3/uL 4.3-11.0 Blood erythrocytes automated count (number/volume) 3.47 10*6/uL 4.35-5.85 Venous blood hemoglobin measurement (mass/volume) 10.6 g/dL 11.5-16.0 Blood hematocrit (volume fraction) 32 % 35-52 Automated erythrocyte mean corpuscular volume 92 [foz_us] 80-99 Automated erythrocyte mean corpuscular hemoglobin (mass per erythrocyte) 31 pg 25-34 Automated erythrocyte mean corpuscular hemoglobin concentration measurement ( mass/volume) 33 g/dL 32-36 Automated erythrocyte distribution width ratio 12.9 % 10.0-14.5 Automated blood platelet count (count/volume) 293 10*3/uL 130-400 Automated blood platelet mean volume measurement 10.9 [foz_us] 7.4-10.4 Automated blood neutrophils/100 leukocytes 75 % 42-75 Automated blood lymphocytes/100 leukocytes 19 % 12-44 Blood monocytes/100 leukocytes 6 % 0-12 Automated blood eosinophils/100 leukocytes 1 % 0-10 Automated blood basophils/100 leukocytes 0 % 0-10 Blood neutrophils automated count (number/volume) 8.4 10*3 1.8-7.8 Blood lymphocytes automated count (number/volume) 2.1 10*3 1.0-4.0 Blood monocytes automated count (number/volume) 0.7 10*3 0.0-1.0 Automated eosinophil count 0.1 10*3/uL 0.0-0.3 Automated blood basophil count (count/volume) 0.0 10*3/uL 0.0-0.1 Comprehensive metabolic panel - 07/09/18 15:30 Serum or plasma sodium measurement (moles/volume) 133 mmol/L 135-145 Serum or plasma potassium measurement (moles/volume) 3.9 mmol/L 3.6-5.0 Serum or plasma chloride measurement (moles/volume) 105 mmol/L 98-107 Carbon dioxide 19 mmol/L 21-32 Serum or plasma anion gap determination (moles/volume) 9 mmol/L 5-14 Serum or plasma urea nitrogen measurement (mass/volume) 9 mg/dL 7-18 Serum or plasma creatinine measurement (mass/volume) 0.70 mg/dL 0.60-1.30 Serum or plasma urea nitrogen/creatinine mass ratio 13 NRG Serum or plasma creatinine measurement with calculation of estimated glomerular filtration rate > NRG Serum or plasma glucose measurement (mass/volume) 77 mg/dL 70-105 Serum or plasma calcium measurement (mass/volume) 9.0 mg/dL 8.5-10.1 Serum or plasma total bilirubin measurement (mass/volume) 0.4 mg/dL 0.1-1.0 Serum or plasma alkaline phosphatase measurement (enzymatic activity/volume) 243 U/L 40-136 Serum or plasma aspartate aminotransferase measurement (enzymatic activity/ volume) 21 U/L 5-34 Serum or plasma alanine aminotransferase measurement (enzymatic activity/volume ) 11 U/L 0-55 Serum or plasma protein measurement (mass/volume) 6.8 g/dL 6.4-8.2 Serum or plasma albumin measurement (mass/volume) 3.3 g/dL 3.2-4.5 CALCIUM CORRECTED 9.6 mg/dL 8.5-10.1 Serum or plasma uric acid measurement (mass/volume) - 07/09/18 15:30 Serum or plasma uric acid measurement (mass/volume) 7.0 mg/dL 2.6-7.2 Complete urinalysis with reflex to culture - 07/09/18 16:00 Urine color determination YELLOW NRG Urine clarity determination CLEAR NRG Urine pH measurement by test strip 6 5-9 Specific gravity of urine by test strip 1.020 1.016- 1.022 Urine protein assay by test strip, semi-quantitative 2+ NEGATIVE Urine glucose detection by automated test strip NEGATIVE NEGATIVE Erythrocytes detection in urine sediment by light microscopy 2+ NEGATIVE Urine ketones detection by automated test strip NEGATIVE NEGATIVE Urine nitrite detection by test strip NEGATIVE NEGATIVE Urine total bilirubin detection by test strip NEGATIVE NEGATIVE Urine urobilinogen measurement by automated test strip (mass/volume) NORMAL NORMAL Urine leukocyte esterase detection by dipstick 1+ NEGATIVE Automated urine sediment erythrocyte count by microscopy (number/high power field) [HPF] NRG Automated urine sediment leukocyte count by microscopy (number/high power field ) [HPF] NRG Bacteria detection in urine sediment by light microscopy FEW NRG Squamous epithelial cells detection in urine sediment by light microscopy 10-25 NRG Crystals detection in urine sediment by light microscopy NONE NRG Casts detection in urine sediment by light microscopy NONE NRG Mucus detection in urine sediment by light microscopy NEGATIVE NRG Complete urinalysis with reflex to culture NO NRG Complete blood count (CBC) with automated white blood cell (WBC) differential - 07/11/18 05:35 Blood leukocytes automated count (number/volume) 12.8 10*3/uL 4.3-11.0 Blood erythrocytes automated count (number/volume) 2.81 10*6/uL 4.35-5.85 Venous blood hemoglobin measurement (mass/volume) 8.6 g/dL 11.5-16.0 Blood hematocrit (volume fraction) 26 % 35-52 Automated erythrocyte mean corpuscular volume 94 [foz_us] 80-99 Automated erythrocyte mean corpuscular hemoglobin (mass per erythrocyte) 31 pg 25-34 Automated erythrocyte mean corpuscular hemoglobin concentration measurement ( mass/volume) 33 g/dL 32-36 Automated erythrocyte distribution width ratio 13.1 % 10.0-14.5 Automated blood platelet count (count/volume) 169 10*3/uL 130-400 Automated blood platelet mean volume measurement 10.6 [foz_us] 7.4-10.4 Automated blood neutrophils/100 leukocytes 73 % 42-75 Automated blood lymphocytes/100 leukocytes 19 % 12-44 Blood monocytes/100 leukocytes 7 % 0-12 Automated blood eosinophils/100 leukocytes 1 % 0-10 Automated blood basophils/100 leukocytes 0 % 0-10 Blood neutrophils automated count (number/volume) 9.3 10*3 1.8-7.8 Blood lymphocytes automated count (number/volume) 2.4 10*3 1.0-4.0 Blood monocytes automated count (number/volume) 1.0 10*3 0.0-1.0 Automated eosinophil count 0.1 10*3/uL 0.0-0.3 Automated blood basophil count (count/volume) 0.0 10*3/uL 0.0-0.1 Complete blood count (CBC) with automated white blood cell (WBC) differential - 07/11/18 12:20 Blood leukocytes automated count (number/volume) 11.5 10*3/uL 4.3-11.0 Blood erythrocytes automated count (number/volume) 2.75 10*6/uL 4.35-5.85 Venous blood hemoglobin measurement (mass/volume) 8.5 g/dL 11.5-16.0 Blood hematocrit (volume fraction) 26 % 35-52 Automated erythrocyte mean corpuscular volume 94 [foz_us] 80-99 Automated erythrocyte mean corpuscular hemoglobin (mass per erythrocyte) 31 pg 25-34 Automated erythrocyte mean corpuscular hemoglobin concentration measurement ( mass/volume) 33 g/dL 32-36 Automated erythrocyte distribution width ratio 13.2 % 10.0-14.5 Automated blood platelet count (count/volume) 178 10*3/uL 130-400 Automated blood platelet mean volume measurement 10.3 [foz_us] 7.4-10.4 Automated blood neutrophils/100 leukocytes 73 % 42-75 Automated blood lymphocytes/100 leukocytes 19 % 12-44 Blood monocytes/100 leukocytes 7 % 0-12 Automated blood eosinophils/100 leukocytes 1 % 0-10 Automated blood basophils/100 leukocytes 0 % 0-10 Blood neutrophils automated count (number/volume) 8.4 10*3 1.8-7.8 Blood lymphocytes automated count (number/volume) 2.2 10*3 1.0-4.0 Blood monocytes automated count (number/volume) 0.7 10*3 0.0-1.0 Automated eosinophil count 0.1 10*3/uL 0.0-0.3 Automated blood basophil count (count/volume) 0.0 10*3/uL 0.0-0.1 Encounters ACCT No. Visit Date/Time Discharge Status Pt. Type Provider Facility Loc./Unit Complaint [id number] 07/09/2018 13:45:00 07/11/2018 15:37:00 DIS Inpatient TOMASZ BOYLE DO [facility] WS PRECLAMPSIA [id number] 04/03/2018 11:05:00 04/03/2018 12:00:00 DIS Outpatient SNAJUANA THOMAS DO [facility] WSo DFM [id number] 03/10/2018 10:04:00 03/10/2018 23:59:59 CLS Outpatient TOMASZ BOYLE DO [facility] RAD [id number] 07/20/2014 19:01:00 07/20/2014 20:38:00 DIS Emergency MARLA HAN APRN [facility] ER DENTAL PAIN [id number] 02/01/2014 11:27:00 02/01/2014 23:59:59 CLS Outpatient OLGA BRAVO DO [facility] RAD PAIN IN BACK L THORACIC REG [id number] 04/11/2018 08:30:00 04/11/2018 23:59:59 CLS Outpatient [facility]SEPH QU[facility]LES [facility]
[2018-07-16] MEDS ORDERED: LORazepam 0.5 MG (ATIVAN) TABLET PO ONE (22:00)
--- NOTE | 2018-07-16 22:08 | ED Integumentary General ---
General Chief Complaint: Skin/Wound Problems Stated Complaint: C SECTION INCISION OPENED UP Nursing Triage Note: Pt ambulated to RM 4. Pt had on 07/10. Pt saw Dr Morgan on Saturday for seepage. Pt noticed wound dehiscence about an hour ago. Source: patient Exam Limitations: no limitations (HARIKA LAURENT MD) History of Present Illness Date Seen by Provider: Jul 16, 2018 Time Seen by Provider: 21:15 Initial Comments Here with report of wound that opened up. She had seen Dr. marte for CABG earlier this week but wound opened up and drained a fair amount a little while ago. She is very concerned about that. Denies fever or chills. Denies bowel splint drainage. States that the fluid was clear/pink. Timing/Duration: just prior to arrival Severity: mild Location: torso Associated Symptoms: No change in skin texture, No edema, No fever, No rash ( HARIKA LAURENT MD) Allergies and Home Medications Allergies Coded Allergies: NKANo Known Allergies (Verified Allergy, Unknown, 04/02/07) Home Medications Acyclovir 200 Mg Capsule, 400 MG PO UD 5 times daily Prescribed by: MALRA HAN on 07/20/141954 Alprazolam 0.5 Mg Tab, 0.25 MG PO DAILY, (Reported) half TABLET IN THE MORNING AND ONE HALF TABLET IN THE EVENING. Docusate Sodium 100 Mg Capsule, 100 MG PO BID PRN for CONSTIPATION-1ST LINE Prescribed by: TOMASZ MORGAN on 07/11/18 1346 Hydrocodone Bit/Acetaminophen 1 Tab Tab, 1-2 TAB PO Q4H PRN for PAIN-MODERATE Prescribed by: TOMASZ MORGAN on 07/11/18 1346 Ibuprofen 600 Mg Tablet, 600 MG PO Q6H Prescribed by: TOMASZ MORGAN on 07/11/18 1346 Labetalol HCl 200 Mg Tablet, 200 MG PO TID Prescribed by: TOMASZ MORGAN on 07/11/18 1346 Sertraline Hcl 50 Mg Tablet, 100 MG PO DAILY, (Reported) Patient Home Medication List Home Medication List Reviewed: Yes (HARIKA LAURENT MD) Review of Systems Review of Systems Constitutional: see HPI; No chills, No fever Respiratory: no symptoms reported Cardiovascular: no symptoms reported Skin: see HPI; No change in color; lesions, other (horizontal wound) Psychiatric/Neurological: Anxiety; Denies Weakness (HARIKA LAURETN MD) Past Gpgdsjb-Vllfrj-Odpitl Hx Past Med/Social Hx: Reviewed Nursing Past Med/Soc Hx (HARIKA LAURENT MD) Patient Social History Alcohol Use: Denies Use Recreational Drug Use: No 2nd Hand Smoke Exposure: No Recent Foreign Travel: No Contact w/Someone Who Travel: No Recent Infectious Disease Expo: No Recent Hopitalizations: Yes () Physical Abuse: No Sexual Abuse: No (HARIKA LAURENT MD) Immunizations Up To Date Tetanus Booster (TDap): Unknown (HARIKA LAURENT MD) Seasonal Allergies Seasonal Allergies: No (HARIKA LAURENT MD) Past Medical History Surgeries: Yes (spinal fusion-T2 to T12) Section Respiratory: No Cardiac: Yes (with current ) Hypertension Neurological: Yes Reproductive Disorders: No Genitourinary: No Gastrointestinal: No Musculoskeletal: No Endocrine: No HEENT: Yes (wears glasses) Cancer: No Psychosocial: Yes Anxiety Integumentary: No Blood Disorders: No Adverse Reaction/Blood Tranf: No (HARIKA LAURENT MD) Family Medical History Reviewed Nursing Family Hx (HARIKA LAURENT MD) FH: lung cancer (mother) Physical Exam Vital Signs Vital Signs - First Documented 07/16/18 20:27 Temp 97.9 Pulse 87 Resp 12 B/P (MAP) 162/108 (126) Pulse Ox 96 O2 Delivery Room Air (JOSE CRUZ RENE) Vital Signs Capillary Refill : Less Than 3 Seconds (HARIKA LAURENT MD) General Appearance: WD/WN, no apparent distress Cardiovascular: regular rate, rhythm, no murmur Respiratory: lungs clear, normal breath sounds Gastrointestinal: non tender, soft Neurologic/Psychiatric: alert, oriented x 3 Skin: normal color, warm/dry, other ( wound has 2.5 cm opening on the right side with serous drainage. No surrounding erythema. The rest of the wound appears to be healing well.) (HARIKA LAURENT MD) Progress/Results/Core Measures Results/Orders My Orders Orders - JOSE CRUZ RENE Lorazepam Tablet (Ativan Tablet) (07/16/18 22:00) (JOSE CRUZ RENE) Medications Given in ED Current Medications Medications Dose Ordered Sig/Cuauhtemoc Route Start Time Stop Time Status Last Admin Dose Admin Lorazepam 0.5 mg ONCE ONCE PO 07/16/18 22:00 07/16/18 22:01 DC 07/16/18 22:00 0.5 MG (EDGARDJOSE CRUZ PIMENTEL) Vital Signs/I&O 07/16/18 07/16/18 20:27 22:36 Temp 97.9 97.9 Pulse 87 82 Resp 12 18 B/P (MAP) 162/108 (126) 142/99 (126) Pulse Ox 96 96 O2 Delivery Room Air Room Air (JOSE CRUZ RENE LOREN) Blood Pressure Mean: 126 Progress Progress Note : Progress Note Have seen and evaluated the patient. I did do wound culture of the wound. I did discuss the case with Dr. Morgan at 0. He is requesting packing of the wound. This was done by nurse practitioner. See note above. Apparently patient did have a significant panic episode during that but calmed afterwards. Patient was instructed to follow-up with Dr. Morgan tomorrow and to call his office in the morning for appointment. Discharged home with return precautions. Patient verbalize understanding instructions and agreement with plan. (HARIKA LAURENT MD) Progress Note : Progress Note 2199 dehiscence to right side of the incision 1.5 cm. during discussion of procedure for packing, the client had a panic attack, able to calm by talking, then requested 0.25 milligrams lorazepam, this was given. When the patient was calm the wound cleaned with Betadine, packed with sterile half-inch iodoform gauze, sterile dressing applied. Patient tolerated procedure well (JOSE CRUZ RENE) Departure Impression Primary Impression: Dehiscence of section wound, Additional Impression: Panic attack Disposition: HOME, SELF-CARE Condition: Improved Departure-Patient Inst. Decision time for Depature: 22:10 (JOSE CRUZ RENE) Referrals: TOMASZ MORGAN DO (PCP) Primary Care Physician OLGA BRAVO DO (Family) Primary Care Physician Patient Instructions: Wound Care (DC) Add. Discharge Instructions: Leave packing in place until follow-up with Dr. Morgan. Call Dr. Morgan in the morning for follow-up appointment. Continue taking home medications as prescribed. Return to emergency department for new concerns. All discharge instructions reviewed with patient and/or family. Voiced understanding. Copy Copies To 1: TOMASZ MORGAN TIMOTHY D MD Jul 16, 2018 22:08 JOSE CRUZ ERNE Jul 16, 2018 22:20
[2018-07-16 22:36] VITALS: BP 142/99
== END 2018-07-16 22:35 | disposition home or self-care (01) ==
LOC: EDUNIT# 20:00 → ER 20:02
DX: O90.0 Disruption of cesarean delivery wound (principal); O99.345 Other mental disorders complicating the puerperium; F41.0 Panic disorder [episodic paroxysmal anxiety]; O16.5 Unspecified maternal hypertension, complicating the puerperium; Z98.1 Arthrodesis status; Z95.1 Presence of aortocoronary bypass graft
CPT/HCPCS: 87070; 87205

== ENCOUNTER → 2021-04-11 | Outpatient (CLI) | payer BC, MEDICAID ==
--- NOTE | 2021-04-11 13:14 | Diagnostic Imaging Report ---
Indication: Routine screening. No prior mammograms are available for comparison. This is a baseline study. 2-D and 3-D bilateral screening mammography was performed with CAD. Scattered fibroglandular densities are identified bilaterally. Benign nodular densities are noted in both breasts suggestive of a intraparenchymal lymph nodes. No spiculated mass or malignant appearing microcalcifications are seen. Axillae are unremarkable. IMPRESSION: BI-RADS Category 2 No mammographic features suspicious for malignancy are identified. ACR BI-RADS Category 2: Benign findings. Result letter will be mailed to the patient. Note: At least 10% of breast cancer is not imaged by mammography. Dictated by: Dictated on workstation # [id number]
== END ==
LOC: RAD 11:00
PROVIDERS: ATTEND Family Medicine
DX: Z12.31 Encounter for screening mammogram for malignant neoplasm of breast (principal)
CPT/HCPCS: 77063; 77067